=== PATIENT | male | born 1945 | race Caucasian/White ===

== ENCOUNTER → 2016-11-23 | Outpatient (CLI) | payer MEDICARE ==
--- NOTE | 2016-11-23 14:04 | XR ---
Abdomen HISTORY: Low back pain Frontal view of the abdomen on 2 images correlated to prior CT abdomen pelvis 10 March 2016 Multiple calcifications in the pelvis are vascular. Surgical clips are present in the right upper lizzy drant. Lung bases are clear. No bowel obstruction or pneumoperitoneum. Vascular calcifications are pr esent over the kidneys. Degenerative disc changes in the visualized spine. IMPRESSION: Degenerative disc disease. Postop changes.
== END ==
LOC: RADXRMAIN 09:36
PROVIDERS: ATTEND Internal Medicine
DX: M51.36 Other intervertebral disc degeneration, lumbar region (principal); Z98.890 Other specified postprocedural states
CPT/HCPCS: 74000

== ENCOUNTER → 2017-02-10 | Outpatient (CLI) | payer MEDICARE ==
--- NOTE | 2017-02-11 07:29 | XR ---
EXAMINATION TYPE: XR chest 2V DATE OF EXAM: 02/10/2017 COMPARISON: Prior chest x-ray 02/06/2016 HISTORY: Trauma and pain TECHNIQUE: Frontal and lateral views of the chest are obtained. FINDINGS: There is no focal air space opacity, pleural effusion, or pneumothorax seen. Prominent jeffrey ng volumes compatible with underlying COPD. The cardiac silhouette size is stable. The sternum is n ot entirely included on the exam, CT scan could be performed for better evaluation as indicated, bone scan may be of benefit. IMPRESSION: No acute cardiopulmonary process.
== END | disposition home or self-care (01) ==
LOC: RADXRMAIN 16:18
PROVIDERS: ATTEND Internal Medicine
DX: S29.9XXA Unspecified injury of thorax, initial encounter (principal); X58.XXXA Exposure to other specified factors, initial encounter
CPT/HCPCS: 71020

== ENCOUNTER 2017-04-06 08:04 | Day surgery (SDC) | payer MEDICARE ==
[2017-04-01 11:58] VITALS: BMI 29.8
[~2017-04-06 08:04] MED LIST: LACTATED RINGERS 1,000 ML IV SCH
[2017-04-06 08:21] VITALS: RESP 16; TEMP 97.6
[2017-04-06] MEDS ORDERED: LIDOCAINE 1% 20 ML VIAL (10MG/ML) FOR IV START INTRADERMA ONE (08:29)
[2017-04-06] MEDS ORDERED: PROPOFOL 10 MG/ML 20 ML VIAL IV ONE (09:12)
[2017-04-06] MEDS ORDERED: LIDOCAINE 1% INJ 10MG/ML (20 ML MDV) ONE (09:12)
--- NOTE | 2017-04-06 09:18 | P.GSHP ---
History of Present Illness H&P Date: 04/06/17 Chief Complaint: Colon cancer screening Patient with history of colon polyps. He is due for screening colonoscopy. He believes the last colonoscopy was 3-5 years ago. No family history of colon cancer. No bowel related complaints. Past Medical History Past Medical History: Cancer, Myocardial Infarction ([place]) Additional Past Medical History / Comment(s): hx polyps,bladder CA 1999-no radiation or chemo Last Myocardial Infarction Date:: 2010 History of Any Multi-Drug Resistant Organisms: None Reported Past Surgical History: Cholecystectomy, Heart Catheterization With Stent Additional Past Surgical History / Comment(s): heart stent x 2 Past Anesthesia/Blood Transfusion Reactions: No Reported Reaction Additional Past Anesthesia/Blood Transfusion Reaction / Comment(s): no hx blood transfusion Date of Last Stent Placement:: 2010 Smoking Status: Former smoker - Past Family History Mother Family Medical History: No Reported History Father Family Medical History: No Reported History Daughter(s) Family Medical History: Cancer Additional Family Medical History / Comment(s): breast Sister(s) Family Medical History: Cancer Additional Family Medical History / Comment(s): breast Medications and Allergies Home Medications Medication Instructions Recorded Confirmed Type Aspirin 81 mg PO DAILY 04/01/17 04/06/17 History Carvedilol [Coreg] 6.25 mg PO QAM 04/01/17 04/06/17 History Pravastatin Sodium [Pravachol] 40 mg PO DAILY 04/01/17 04/06/17 History Allergies Allergy/AdvReac Type Severity Reaction Status Date / Time Penicillins Allergy "passed Verified 04/06/17 08:13 out and loss of consciousness" Surgical - Exam Vital Signs Temp Pulse Resp BP Pulse Ox 97.6 F 61 16 137/78 98 04/06/17 08:21 04/06/17 08:21 04/06/17 08:21 04/06/17 08:21 04/06/17 08:21 Physical exam: General: Well-developed, well-nourished HEENT: Normocephalic, sclerae nonicteric Abdomen: Nontender, nondistended Extremities: No edema Neuro: Alert and oriented Assessment and Plan (1) Colon cancer screening Narrative/Plan: Will proceed with colonoscopy at this time. Status: Acute
--- NOTE | 2017-04-06 09:30 | P.PCN ---
Date of Procedure: 04/06/17 Preoperative Diagnosis: Postoperative Diagnosis: Procedure(s) Performed: PREOPERATIVE DIAGNOSIS: Colon cancer screening, personal history of polyps POSTOPERATIVE DIAGNOSIS: Normal exam PROCEDURE: Colonoscopy ANESTHESIA: MAC SURGEON: Ashwin Torre M.D. SPECIMENS: None ENDOSCOPIC PROCEDURE: The patient was placed on the endoscopy table in the left decubitus position. The Olympus colonoscope was inserted into the anus and passed under direct visualization to the base of the cecum. The appendiceal orifice was visualized. From that point the scope was slowly withdrawn inspecting all surfaces carefully. There were no neoplastic inflammatory or polypoid lesions throughout the cecum, ascending, transverse, descending, sigmoid and rectum. There was no diverticulosis noted. Digital rectal examination was normal. The patient was taken to the recovery room in stable condition per anesthesia guidelines. RECOMMENDATIONS: Increase fiber. Follow-up colonoscopy in 10 years. Implants: Indications for Procedure: Operative Findings: Description of Procedure:
[2017-04-06 09:49] VITALS: BP 122/79; PULSE 52
== END 2017-04-06 10:15 | disposition home or self-care (01) ==
LOC: ORWHC2ENDO 08:04
PROVIDERS: ATTEND Surgery
DX: Z12.11 Encounter for screening for malignant neoplasm of colon (principal); Z86.010 Personal history of colon polyps; E78.5 Hyperlipidemia, unspecified; I25.10 Atherosclerotic heart disease of native coronary artery without angina pectoris; I10 Essential (primary) hypertension; I25.2 Old myocardial infarction; Z85.51 Personal history of malignant neoplasm of bladder; Z95.5 Presence of coronary angioplasty implant and graft; Z79.82 Long term (current) use of aspirin; Z79.899 Other long term (current) drug therapy; Z88.0 Allergy status to penicillin; Z87.891 Personal history of nicotine dependence
CPT/HCPCS: J2001; J2704; G0105; 45378

== ENCOUNTER 2018-03-22 10:27 | Emergency (ER) | payer MEDICARE, OTHER ==
[2018-03-22 10:44] VITALS: RESP 18
--- NOTE | 2018-03-22 10:51 | ED ---
Lower Extremity Injury HPI - General Chief Complaint: Extremity Injury, Lower Stated Complaint: RT KNEE INJURY Time Seen by Provider: 03/22/18 10:45 Source: patient, RN notes reviewed Mode of arrival: ambulatory Limitations: no limitations - History of Present Illness Initial Comments: This is a 72-year-old male presents emergency Department with chief complaint of right knee injury. Patient states that he was unloading a powered wheelchair and states that it ran into his right knee in the medial aspect causing his knee to buckle. Patient complains of pain in the lateral portion. He's had no prior knee problems no prior knee surgeries. Patient states that the pain is worse with ambulation states that the injury happened a few hours ago. Patient denies any proximal leg pain and denies any distal leg pain. - Related Data Home Medications Medication Instructions Recorded Confirmed Aspirin 81 mg PO DAILY 04/01/17 03/22/18 Carvedilol [Coreg] 6.25 mg PO QAM 04/01/17 03/22/18 Escitalopram [Lexapro] 5 mg PO DAILY 03/22/18 03/22/18 L.acidoph,Paracasei, B.lactis 1 cap PO DAILY 03/22/18 03/22/18 [Probiotic] Pravastatin Sodium [Pravachol] 80 mg PO DAILY 03/22/18 03/22/18 Allergies Allergy/AdvReac Type Severity Reaction Status Date / Time Penicillins Allergy "passed Verified 03/22/18 10:54 out and loss of consciousness" Review of Systems ROS Statement: Those systems with pertinent positive or pertinent negative responses have been documented in the HPI. ROS Other: All systems not noted in ROS Statement are negative. Past Medical History Past Medical History: Cancer, Hyperlipidemia, Myocardial Infarction ([place]) Additional Past Medical History / Comment(s): hx polyps,bladder CA 1999-no radiation or chemo Last Myocardial Infarction Date:: 2010 History of Any Multi-Drug Resistant Organisms: None Reported Past Surgical History: Cholecystectomy, Heart Catheterization With Stent Additional Past Surgical History / Comment(s): heart stent x 2 Past Anesthesia/Blood Transfusion Reactions: No Reported Reaction Additional Past Anesthesia/Blood Transfusion Reaction / Comment(s): no hx blood transfusion Date of Last Stent Placement:: 2010 Past Psychological History: Anxiety Smoking Status: Former smoker Past Alcohol Use History: Occasional Past Drug Use History: None Reported - Past Family History Mother Family Medical History: No Reported History Father Family Medical History: No Reported History Daughter(s) Family Medical History: Cancer Additional Family Medical History / Comment(s): breast Sister(s) Family Medical History: Cancer Additional Family Medical History / Comment(s): breast General Exam Limitations: no limitations General appearance: alert, in no apparent distress Head exam: Present: atraumatic, normocephalic, normal inspection Respiratory exam: Present: normal lung sounds bilaterally. Absent: respiratory distress, wheezes, rales, rhonchi, stridor Cardiovascular Exam: Present: regular rate, normal rhythm, normal heart sounds. Absent: systolic murmur, diastolic murmur, rubs, gallop, clicks Extremities exam: Present: other (Right knee patient has tenderness on lateral aspect of the joint line, there is no swelling no ecchymosis no laxity there is mild discomfort with varus no laxity with varus or valgus.) Skin exam: Present: warm, dry, intact, normal color. Absent: rash Course Vital Signs 03/22/18 10:42 Temperature 98.3 F Pulse Rate 60 Respiratory 18 Rate Blood Pressure 127/73 O2 Sat by Pulse 97 Oximetry Medical Decision Making - Medical Decision Making 72-year-old male presents emergency department for right knee pain. Patient had an injury on the medial aspect causes need to buckle. Patient has lateral knee pain concern for meniscus versus ligamentous injury. Patient placed in knee immobilizer and follow-up with orthopedics. Disposition Clinical Impression: Knee strain Disposition: HOME SELF-CARE Condition: Stable Instructions: Knee Sprain (ED) Additional Instructions: Please return to the Emergency Department if symptoms worsen or any other concerns. Is patient prescribed a controlled substance at d/c from ED?: No Referrals: Geneva Burch MD [Primary Care Provider] - 1-2 days Josue Burgos MD [STAFF PHYSICIAN] - 1-2 days Time of Disposition: 12:14
--- NOTE | 2018-03-22 12:05 | XR ---
EXAMINATION TYPE: XR knee complete RT DATE OF EXAM: 03/22/2018 CLINICAL HISTORY: Right knee pain after injury. TECHNIQUE: Three views of the right knee are obtained. COMPARISON: None. FINDINGS: There is no acute fracture/dislocation evident in right knee. Mild to moderate joint space loss medial tibiofemoral compartment is present. Mild joint space loss patellofemoral compartment is seen. The overlying soft tissue appears unremarkable. IMPRESSION: There is no acute fracture or dislocation in the right knee.
[2018-03-22 12:52] VITALS: BP 111/58; PULSE 70; TEMP 97.5
== END 2018-03-22 12:52 | disposition home or self-care (01) ==
LOC: EC 10:27
DX: S86.811A Strain of other muscle(s) and tendon(s) at lower leg level, right leg, initial encounter (principal); F41.9 Anxiety disorder, unspecified; E78.5 Hyperlipidemia, unspecified; I25.10 Atherosclerotic heart disease of native coronary artery without angina pectoris; Z87.891 Personal history of nicotine dependence; Z79.82 Long term (current) use of aspirin; Z79.02 Long term (current) use of antithrombotics/antiplatelets; Z79.899 Other long term (current) drug therapy; Z88.0 Allergy status to penicillin; Z85.51 Personal history of malignant neoplasm of bladder; W20.8XXA Other cause of strike by thrown, projected or falling object, initial encounter
CPT/HCPCS: 73562; 99283; L1830

== ENCOUNTER → 2018-10-30 | Outpatient (CLI) | payer MEDICARE ==
--- NOTE | 2018-10-30 11:47 | XR ---
EXAMINATION TYPE: XR abdomen complete w decub DATE OF EXAM: 10/30/2018 COMPARISON: Prior abdomen 11/23/2016 HISTORY: Abdominal pain, kidney stones, K 59.00 TECHNIQUE: Supine, upright, and left side down lateral decubitus views of the abdomen are obtained o n 4 images. FINDINGS: Surgical clips present in the right upper quadrant. Retained fecal debris present througho ut the distribution of the colon. Lung bases are clear. There is no evidence for pneumoperitoneum. The bowel gas pattern is unremarkable as there is air throughout nondilated small and large bowel. No sizeable air fluid levels. No mass effects are seen. No unusual calcifications. Multiple calcifications within the pelvis again noted may represent phlebo liths, be vascular IMPRESSION: Correlate for possible fecal stasis.
== END | disposition home or self-care (01) ==
LOC: RADXRMAIN 09:27
PROVIDERS: ATTEND Internal Medicine
DX: K59.00 Constipation, unspecified (principal)
CPT/HCPCS: 74021

== ENCOUNTER → 2019-03-13 | Outpatient (CLI) | payer MEDICARE ==
--- NOTE | 2019-03-13 11:41 | XR ---
EXAMINATION TYPE: XR thoracic spine complete DATE OF EXAM: 03/13/2019 COMPARISON: Chest x-ray 02/10/2017 HISTORY: Pain Alignment is anatomic. There is multilevel hypertrophic change and moderate to severe degenerative d isc disease. There is a moderate to severe anterior wedge deformity in the mid to upper thoracic spin e not clearly seen on any of the previous exam and is age indeterminate. Surgical clips in the right upper quadrant of the abdomen. IMPRESSION: 1. Multilevel moderate to severe degenerative disc disease and hypertrophic changes with an age indet erminate moderate to severe compression deformity or fracture in the mid to upper thoracic spine. Fol low-up MRI or bone scan could BE obtained.
== END | disposition home or self-care (01) ==
LOC: RADXRMAIN 10:59
PROVIDERS: ATTEND Internal Medicine
DX: M51.34 Other intervertebral disc degeneration, thoracic region (principal)
CPT/HCPCS: 72072

== ENCOUNTER → 2019-03-27 | Outpatient (CLI) | payer MEDICARE ==
--- NOTE | 2019-03-28 01:57 | MR ---
EXAMINATION TYPE: MR thoracic spine wo/w con DATE OF EXAM: 03/27/2019 COMPARISON: None HISTORY: Mid back pain CONTRAST: Standard multiplanar, multisequence MRI departmental protocol utilizing 10 mL intravenous Gadavist ga dolinium contrast. FINDINGS: There is some thoracic kyphotic deformity. There is 60% anterior wedging of T5 vertebra. Th ere is variable fatty replacement of the marrow of the vertebral bodies. There is no thoracic paraspi nal mass. Thoracic spinal cord has normal signal pattern without evidence of edema. There is no thora cic spinal stenosis. The contrast images show no pathologic enhancement. I see no focal bone destruct ion. There is a 1.5 cm hemangioma of the posterior aspect of the T9 vertebral body. IMPRESSION: There is T5 compression fracture probably due to osteoporosis. No focal bone destruction. No spinal s tenosis.
== END | disposition home or self-care (01) ==
LOC: RADMRIMAIN 20:27
PROVIDERS: ATTEND Internal Medicine
DX: M48.54XA Collapsed vertebra, not elsewhere classified, thoracic region, initial encounter for fracture (principal)
CPT/HCPCS: 72157; A9585

== ENCOUNTER → 2019-12-20 | Outpatient (CLI) | payer MEDICARE ==
[2019-12-20 18:26] LABS: Chol/HDL Ratio 4.18; LDL Cholesterol,Calculated 84.4 mg/dL (0.0-131.0); VLDL Calculation 23.6 mg/dL (5.00-40.00)
== END | disposition home or self-care (01) ==
LOC: LABWHC1 11:13
PROVIDERS: ATTEND Internal Medicine Cardiovascular Disease
DX: I10 Essential (primary) hypertension (principal); E78.5 Hyperlipidemia, unspecified; I25.10 Atherosclerotic heart disease of native coronary artery without angina pectoris
CPT/HCPCS: 36415; 80061; 84450; 84460

== ENCOUNTER 2020-10-25 15:09 | Emergency (ER) | payer MEDICARE ==
[2020-10-25 15:30] VITALS: RESP 18
[2020-10-25 16:06] LABS: Appearance,Urine Clear (Clear); Bilirubin,Urine Negative (Negative); Blood,Urine Negative (Negative); Color,Urine Yellow; Glucose,Urine (UA) Negative (Negative); Ketones,Urine Negative (Negative); Leukocyte Esterase,Urine Negative (Negative); Nitrite,Urine Negative (Negative); Protein,Urine Negative (Negative); Specific Gravity,Urine 1.026 (1.001-1.035)
[2020-10-25] MEDS ORDERED: SODIUM CHLORIDE 0.9% 500 ML 500 ML IV ONE (16:19)
[2020-10-25 16:43] LABS: Basophils % (A) 0 %; Eosinophils # (A) 0.1 k/uL (0-0.7); Eosinophils % (A) 1 %; HCT 43.8 % (39.0-53.0); HGB 14.6 gm/dL (13.0-17.5); Lymphocytes # (A) 1.3 k/uL (1.0-4.8); Lymphocytes % (A) 20 %; MCH 31.8 pg (25.0-35.0); MCHC 33.4 g/dL (31.0-37.0); MCV 95.2 fL (80.0-100.0); Mean Platelet Volume 7.1; Monocytes # (A) 0.3 k/uL (0-1.0); Monocytes % (A) 5 %; Neutrophils # (A) 4.5 k/uL (1.3-7.7); Neutrophils % (A) 71 %; Platelet Count 194 k/uL (150-450); RBC 4.61 m/uL (4.30-5.90); RDW 13.3 % (11.5-15.5); WBC 6.3 k/uL (3.8-10.6)
--- NOTE | 2020-10-25 16:47 | ED ---
General Adult HPI - General Chief complaint: Back Pain/Injury Stated complaint: Back Pain Time Seen by Provider: 10/25/20 15:34 Source: patient Mode of arrival: ambulatory Limitations: no limitations - History of Present Illness Initial comments: Brandon is a pleasant 74 yo M who presents to the ER today for evaluation of 3wks of right sided flank pain. Patient states that approx. 3 weeks ago been experiencing intermittent stabbing pain in the right flank. Patient reports is been times the pain becomes so severe it drops into his knees. However these episodes resolve. Patient states he has a history of kidney stones and believes he is just been battling one for the past 3 weeks but due to the duration of pain decided to come to the ER for evaluation. Patient reports that he gets nauseated with the pain but has had no vomiting diarrhea or change in bowel habits. Denies any lightheadedness or syncope. Denies any fevers chills or recent illness. - Related Data Home Medications Medication Instructions Recorded Confirmed Aspirin 81 mg PO DAILY 04/01/17 03/22/18 carvediloL [Coreg] 6.25 mg PO QAM 04/01/17 03/22/18 Escitalopram [Lexapro] 5 mg PO DAILY 03/22/18 03/22/18 L.acidoph,Paracasei, B.lactis 1 cap PO DAILY 03/22/18 03/22/18 [Probiotic] Pravastatin Sodium [Pravachol] 80 mg PO DAILY 03/22/18 03/22/18 Allergies Allergy/AdvReac Type Severity Reaction Status Date / Time Penicillins Allergy "passed Verified 10/25/20 15:30 out and loss of consciousness" Review of Systems ROS Statement: Those systems with pertinent positive or pertinent negative responses have been documented in the HPI. ROS Other: All systems not noted in ROS Statement are negative. Past Medical History Past Medical History: Cancer, Hyperlipidemia, Myocardial Infarction ([place]) Additional Past Medical History / Comment(s): hx polyps,bladder CA 1999-no radiation or chemo Last Myocardial Infarction Date:: 2010 History of Any Multi-Drug Resistant Organisms: None Reported Past Surgical History: Cholecystectomy, Heart Catheterization With Stent Additional Past Surgical History / Comment(s): heart stent x 2 Past Anesthesia/Blood Transfusion Reactions: No Reported Reaction Additional Past Anesthesia/Blood Transfusion Reaction / Comment(s): no hx blood transfusion Date of Last Stent Placement:: 2010 Past Psychological History: Anxiety Smoking Status: Former smoker Past Alcohol Use History: Occasional Past Drug Use History: None Reported - Past Family History Mother Family Medical History: No Reported History Father Family Medical History: No Reported History Daughter(s) Family Medical History: Cancer Additional Family Medical History / Comment(s): breast Sister(s) Family Medical History: Cancer Additional Family Medical History / Comment(s): breast General Exam - General Exam Comments Initial Comments: Physical Exam GENERAL: Patient is well-developed and well-nourished. Patient is nontoxic and well-hydrated and is in no distress. HENT: Normocephalic, Atraumatic. EYES: PERRL, EOMI PULMONARY: Unlabored respirations. CARDIOVASCULAR: RRR Warm and well perfused extremities ABDOMEN: Non-distended Tenderness to percussion of the right flank SKIN: No rashes or bruising No evidence of a vesicular rash or signs of shingles : Deferred NEUROLOGIC: Alert and oriented Normal speech Normal gait MUSCULOSKELETAL: Moving all extremities with no apparent injury PSYCHIATRIC: No SI/HI Limitations: no limitations Course Vital Signs 10/25/20 10/25/20 10/25/20 15:27 16:30 17:00 Temperature 99.1 F Pulse Rate 80 Respiratory 18 18 18 Rate Blood Pressure 107/66 O2 Sat by Pulse 97 Oximetry Medical Decision Making - Medical Decision Making Patient was seen and evaluated history is obtained from patient and review of medical record 74-year-old male with a history of kidney stones presenting with 3 weeks of intermittent right-sided flank pain, worse with physical activity such as go lfing, no gross hematuria HEENT on arrival is rated 4 out of [address] resulted with no acute abnormalities, results were discussed with the patient, I discussed the possibility of musculoskeletal source of pain. At that time patient's was at bedside and reminded him that his pain actually began after chiropractic treatment and was worse with golfing. Patient agrees this is likely mechanical in nature. Will follow with primary care physician for referral to physical therapy. - Lab Data Result diagrams: 10/25/20 16:37 10/25/20 16:37 Lab Results 10/25/20 10/25/20 10/25/20 Range/Units 15:48 16:37 16:37 WBC 6.3 (3.8-10.6) k/uL RBC 4.61 (4.30-5.90) m/uL Hgb 14.6 (13.0-17.5) gm/dL Hct 43.8 (39.0-53.0) % MCV 95.2 (80.0-100.0) fL MCH 31.8 (25.0-35.0) pg MCHC 33.4 (31.0-37.0) g/dL RDW 13.3 (11.5-15.5) % Plt Count 194 (150-450) k/uL MPV 7.1 Neutrophils % 71 % Lymphocytes % 20 % Monocytes % 5 % Eosinophils % 1 % Basophils % 0 % Neutrophils # 4.5 (1.3-7.7) k/uL Lymphocytes # 1.3 (1.0-4.8) k/uL Monocytes # 0.3 (0-1.0) k/uL Eosinophils # 0.1 (0-0.7) k/uL Basophils # 0.0 (0-0.2) k/uL Sodium 140 (137-145) mmol/L Potassium 4.5 (3.5-5.1) mmol/L Chloride 106 (98-107) mmol/L Carbon Dioxide 27 (22-30) mmol/L Anion Gap 7 mmol/L BUN 13 (9-20) mg/dL Creatinine 0.84 (0.66-1.25) mg/dL Est GFR (CKD-EPI)AfAm >90 (>60 ml/min/1.73 sqM) Est GFR (CKD-EPI)NonAf 87 (>60 ml/min/1.73 sqM) Glucose 93 (74-99) mg/dL Calcium 9.2 (8.4-10.2) mg/dL Total Bilirubin 0.9 (0.2-1.3) mg/dL AST 22 (17-59) U/L ALT 16 (4-49) U/L Alkaline Phosphatase 78 (38-126) U/L Total Protein 7.8 (6.3-8.2) g/dL Albumin 4.4 (3.5-5.0) g/dL Urine Color Yellow Urine Appearance Clear (Clear) Urine pH 6.0 (5.0-8.0) Ur Specific [place] 1.026 (1.001-1.035) Urine Protein Negative (Negative) Urine Glucose (UA) Negative (Negative) Urine Ketones Negative (Negative) Urine Blood Negative (Negative) Urine Nitrite Negative (Negative) Urine Bilirubin Negative (Negative) Urine Urobilinogen 2.0 (<2.0) mg/dL Ur Leukocyte Esterase Negative (Negative) Disposition Clinical Impression: Mechanical back pain Disposition: HOME SELF-CARE Condition: Stable Instructions (If sedation given, give patient instructions): Acute Low Back Pain (ED) Is patient prescribed a controlled substance at d/c from ED?: No Referrals: [facility] [Primary Care Provider] - 1-2 days
[2020-10-25 16:53] LABS: ALT 16 U/L (4-49); AST 22 U/L (17-59); African American GFR (CKD) >90 (>60 ml/min/1.73 sqM); Albumin 4.4 g/dL (3.5-5.0); Alkaline Phosphatase 78 U/L (38-126); Anion Gap 7 mmol/L; Blood Urea Nitrogen 13 mg/dL (9-20); Calcium 9.2 mg/dL (8.4-10.2); Carbon Dioxide 27 mmol/L (22-30); Chloride 106 mmol/L (98-107); Glucose 93 mg/dL (74-99); Non-African American GFR(CKD) 87 (>60 ml/min/1.73 sqM); Potassium 4.5 mmol/L (3.5-5.1); Sodium 140 mmol/L (137-145); Total Bilirubin 0.9 mg/dL (0.2-1.3); Total Protein 7.8 g/dL (6.3-8.2)
--- NOTE | 2020-10-25 17:56 | CT ---
EXAMINATION TYPE: CT abdomen pelvis w con DATE OF EXAM: 10/25/2020 COMPARISON: 03/10/2016 HISTORY: Right flank pain and hematuria x3 weeks. History of bladder cancer. CT DLP: 1657.6 mGycm Automated exposure control for dose reduction was used. CONTRAST: Performed with IV Contrast, patient injected with 100ml mL of Isovue 300. Images obtained from the diaphragm to the floor the pelvis with IV contrast. Lung bases are clear. There is no pleural effusion. Heart size is normal. There is no pericardial eff usion. Liver spleen stomach pancreas appear normal. There are clips from cholecystectomy. The bile ducts are not dilated. There is no adrenal mass. Kidneys show satisfactory contrast opacification. There is no hydronephrosi s. There is 2 cm cortical cyst posterior right kidney. Delayed images show normal renal excretion. Ur eters are not dilated. There is no retroperitoneal adenopathy. Bladder distends smoothly. There is no inguinal hernia. There is no free fluid in the pelvis. Appendix not definitely seen. No sign of thickened appendix. There is no mesenteric edema. There is no ascites or free air. There is no bowel obstruction. Lumbar vertebra have normal alignment. Disc spaces are fairly normal. There is no compression fractur e. Bony pelvis is intact. The hip joints are intact. IMPRESSION: Right renal cortical cyst unchanged. No evidence of renal mass or obstruction. No evidence of a bladd er mass. No acute abnormality of the abdomen pelvis.
[2020-10-25 18:37] VITALS: BP 138/78; PULSE 64; TEMP 98.4
== END 2020-10-25 18:40 | disposition home or self-care (01) ==
LOC: EC 15:09
DX: M54.9 Dorsalgia, unspecified (principal); E78.5 Hyperlipidemia, unspecified; F41.9 Anxiety disorder, unspecified; I25.2 Old myocardial infarction; Z79.82 Long term (current) use of aspirin; Z87.891 Personal history of nicotine dependence; Z88.0 Allergy status to penicillin; Z85.51 Personal history of malignant neoplasm of bladder
CPT/HCPCS: 36415; 80053; 85025; 81003; 74177; 99284; Q9967

== ENCOUNTER → 2020-11-26 | Outpatient (CLI) | payer MEDICARE ==
[2020-11-26 16:48] LABS: Chol/HDL Ratio 4.5
== END | disposition home or self-care (01) ==
LOC: LABWHC1 10:14
PROVIDERS: ATTEND Internal Medicine Cardiovascular Disease
DX: E78.2 Mixed hyperlipidemia (principal)
CPT/HCPCS: 36415; 80061; 84450; 84460

== ENCOUNTER → 2021-02-17 | Outpatient (CLI) | payer MEDICARE | END | disposition home or self-care (01) | DX: J98.6 Disorders of diaphragm (principal) | CPT/HCPCS: 71046 ==

== ENCOUNTER → 2021-02-23 | Outpatient (CLI) | payer MEDICARE ==
--- NOTE | 2021-02-23 12:54 | US ---
EXAMINATION TYPE: US carotid duplex BILAT DATE OF EXAM: 02/23/2021 COMPARISON: NONE CLINICAL HISTORY: R09.89 Other specified symptoms and signs involvin. Left carotid bruit; TIA 2007 EXAM MEASUREMENTS: RIGHT: Peak Systolic Velocity (PSV) cm/sec ----- Right CCA: 71.0 ----- Right ICA: 77.6 ----- Right ECA: 72.2 ICA/CCA ratio: 1.1 RIGHT: End Diastole cm/sec ----- Right CCA: 11.7 ----- Right ICA: 0.0 ----- Right ECA: 8.7 LEFT: Peak Systolic Velocity (PSV) cm/sec ----- Left CCA: 72.9 ----- Left ICA: 82.1 ----- Left ECA: 102.6 ICA/CCA ratio: 1.1 LEFT: End Diastole cm/sec ----- Left CCA: 11.9 ----- Left ICA: 21.6 ----- Left ECA: 0.0 VERTEBRALS (direction of flow): Right Vertebral: Antegrade Left Vertebral: Antegrade Rhythm: Normal Mild intimal wall thickening is imaged at bilateral carotid bifurcation, but PSV is wnl bilaterally. Incidental findings: thyroid nodules noted in bilateral thyroid glands. Right thyroid larger nodule = 2.9 x 2.3 x 2.1cm. Couple of left thyroid nodules are seen with larger nodule= 3.8 x 1.9 x 2.2cm. IMPRESSION: 1. Thyroid nodules are not well evaluated. Dedicated ultrasound could be obtained. 2. No US evidence for hemodynamically significant stenosis. Criteria for Assigning % of Stenosis / Diameter reduction (Estimation based on the indirect measurements of the internal carotid artery velocities (ICA PSV). 1. Normal (no stenosis)=ICA PSV < 125 cm/s: ratio < 2.0: ICA EDV<40 cm/s. 2. Less than 50% stenosis=ICA PSV < 125 cm/s: ratio < 2.0: ICA EDV<40 cm/s. 3. 50 to 69% stenosis=ICA PSV of 125 to 230 cm/s: ration 2.0 ? 4.0: ICA EDV 40-100 cm/s. 4. Greater than 70% stenosis to near occlusion= ICA PSV > 230 cm/s: ratio > 4.0: ICA EDV > 100 cm/s. 5. Near occlusion= ICA PSV velocities may be low or undetectable: variable ratio and ICA EDV. 6. Total occlusion=unable to detect flow.
== END | disposition home or self-care (01) ==
LOC: RADUSWWP 10:52
PROVIDERS: ATTEND Internal Medicine
DX: I65.23 Occlusion and stenosis of bilateral carotid arteries (principal)
CPT/HCPCS: 93880

== ENCOUNTER 2021-03-30 12:51 | Day surgery (SDC) | payer MEDICARE ==
[2021-03-30 13:26] VITALS: TEMP 97.6
--- NOTE | 2021-03-30 14:33 | US ---
ULTRASOUND GUIDED FNA THYROID BIOPSY: CLINICAL HISTORY: Request for right thyroid nodule FNA FINDINGS: The procedure was explained to the patient. The risks, complications, benefits and alternatives were discussed and any questions were answered. Informed consent was obtained. Patient was placed supin e on the ultrasound table and prepped and draped in the usual sterile fashion. Utilizing a 25 gauge needle, five passes were made into the requested right thyroid nodule. Patient was stable throughout the procedure. Pathology is pending. All elements of maximal barrier technique were utilized. IMPRESSION: 1. Successful ultrasound guided FNA thyroid biopsy.
[2021-03-30 14:39] VITALS: BP 117/69; PULSE 55; RESP 14
== END 2021-03-30 14:40 | disposition home or self-care (01) ==
LOC: RADPROMAIN 12:51
PROVIDERS: ATTEND Internal Medicine
DX: E04.2 Nontoxic multinodular goiter (principal); C67.9 Malignant neoplasm of bladder, unspecified
CPT/HCPCS: 10005; 88173; 88305

== ENCOUNTER → 2021-04-16 | Outpatient (CLI) | payer OTHER ==
--- NOTE | 2021-04-17 07:56 | CTL ---
EXAMINATION TYPE: CT Low Dose Lung DATE OF EXAM ORDERED: 04/16/2021 COMPARISON: None HISTORY: . Low Dose CT Lung Screening CT DLP: 79.[address] CTDI: 2.40 mGy IV CONTRAST USED: None. SCREENING VISIT: First visit COMPARISON: None. TECHNIQUE: Low dose computed tomography scan was performed through the chest at 1 millimeter thick se ctions and reconstructed images in the coronal plane at [address] DIAGNOSTIC QUALITY: Satisfactory FINDINGS: LUNG NODULES: Not presentLeft lung: no nodules identified.Right lung: no nodules identified. LUNGS: COPD: Severity: Mild Fibrosis: Severity:None Lymph nodes: None Other findings: None RIGHT PLEURAL SPACE: Effusion: None Calcification: None Thickening: None Pneumothorax: None LEFT PLEURAL SPACE: Effusion: None Calcification: None Thickening: None Pneumothorax: None HEART: Heart Size: Mildly enlarged Coronary calcification: Mild Pericardial effusion: None OTHER FINDINGS: Upper abdomen: No significant abnormality Bony thorax: Degenerative changes Supraclavicular region: No significant abnormalityOther: No significant abnormalityI IMPRESSION: No distinct pulmonary nodule identified. FOLLOW UP CT CHEST RECOMMENDATION: Follow-up screening in one year. Smoking cessation recommended. CT LUNG RAD: LUNG RAD CATEGORY 1 negative
== END | disposition home or self-care (01) ==
LOC: RADCTMAIN 17:27
DX: Z12.2 Encounter for screening for malignant neoplasm of respiratory organs (principal)
CPT/HCPCS: 71271

== ENCOUNTER → 2022-02-11 | Outpatient (CLI) | payer OTHER ==
[2022-02-11 16:46] LABS: ALT 14 U/L (10-49); AST 19 U/L (14-35); Chol/HDL Ratio 3.94 Ratio; LDL Cholesterol,Calculated 84.4 mg/dL (0.0-131.0)
== END | disposition home or self-care (01) ==
LOC: LABWHC1 09:14
PROVIDERS: ATTEND Internal Medicine Cardiovascular Disease
DX: E78.2 Mixed hyperlipidemia (principal)
CPT/HCPCS: 36415; 80061; 84450; 84460

== ENCOUNTER 2022-12-28 09:35 | Day surgery (SDC) | payer OTHER ==
[2022-12-24 17:49] VITALS: BMI 27.1
[2022-12-28] MEDS ORDERED: LACTATED RINGERS 1,000 ML IV SCH (10:39)
[2022-12-28] MEDS ORDERED: LIDOCAINE 1% (10MG/ML) FOR IV START INTRADERMA PRN (10:39)
[2022-12-28 10:53] VITALS: RESP 16; TEMP 97.2
[2022-12-28] MEDS ORDERED: PROPOFOL 10 MG/ML 20 ML VIAL IV ONE (11:29)
--- NOTE | 2022-12-28 11:44 | P.PCN ---
Date of Procedure: 12/28/22 Procedure(s) Performed: BRIEF HISTORY: Patient is a 77-year-old pleasant male scheduled for an elective colonoscopy as a part of screening for colon cancer. His nephew was recently was diagnosed with colon cancer at age 50 PROCEDURE PERFORMED: Colonoscopy. PREOPERATIVE DIAGNOSIS: Screening for colon cancer. IV sedation per Anesthesia. PROCEDURE: After informed consent was obtained, the patient, was brought into the endoscopy unit. IV sedation was administered by Anesthesia under continuous monitoring. Digital rectal examination was normal. Initially the Olympus CF-160 flexible video colonoscope was then inserted in the rectum, gradually advanced into the cecum without any difficulty. Careful examination was performed as the scope was gradually being withdrawn. Ileocecal valve and the appendiceal orifice were visualized and appeared normal. Prep was excellent. Mucosa of the cecum, ascending colon, transverse colon, descending colon, sigmoid colon, and rectum appeared normal. Retroflexion was performed in the rectum and no lesions were seen. The patient tolerated the procedure well. IMPRESSION: Normal-appearing colon from rectum to cecum with no evidence of colorectal neoplasia . RECOMMENDATIONS: Findings of this examination were discussed with the patient as well as his family. He was advised to have a repeat screening colonoscopy in 5 years from now because of the family history.
[2022-12-28] MEDS ORDERED: LACTATED RINGERS 1,000 ML IV ONE (11:45)
[2022-12-28 12:05] VITALS: BP 142/88; PULSE 59
== END 2022-12-28 12:25 | disposition home or self-care (01) ==
LOC: ORWHC2ENDO 09:35
PROVIDERS: ATTEND Internal Medicine Gastroenterology
DX: Z12.11 Encounter for screening for malignant neoplasm of colon (principal); I25.2 Old myocardial infarction; Z95.5 Presence of coronary angioplasty implant and graft; I10 Essential (primary) hypertension; E78.5 Hyperlipidemia, unspecified; E03.9 Hypothyroidism, unspecified; Z79.890 Hormone replacement therapy; F41.9 Anxiety disorder, unspecified; Z79.899 Other long term (current) drug therapy; Z88.0 Allergy status to penicillin
CPT/HCPCS: 45378; J2704

== ENCOUNTER → 2023-07-15 | Outpatient (CLI) | payer OTHER ==
--- NOTE | 2023-07-17 15:28 | US ---
EXAMINATION TYPE: US thyroid st tissue head/neck DATE OF EXAM: 07/15/2023 COMPARISON: US FNA 2020, Outside ultrasound 03/13/2021 CLINICAL INDICATION: Male, 77 years old with history of R94.6 THYROID; Hx FNA. GLAND SIZE: Right Lobe: 7.0 x 3.7 x 2.4 cm Overall Parenchyma: heterogenous Left Lobe: 7.7 x 2.5 x 2.2 cm Overall Parenchyma: heterogenous Isthmus Thickness: 0.44 cm NODULES RIGHT: # of nodules measured on right: 2 1. 3.4 X 2.5 x 1.9 cm, upper lateral, mixed cystic and solid, isoechoic nodule, which is wider than tall, with smooth margins, without echogenic foci. Prior size: 3.6 x 2.6 x 2.0 cm 2. 1.7 X 1.3 x 1.0 cm, mid medial, solid or almost completely solid, isoechoic nodule, which is wid er than tall, with smooth margins, without echogenic foci. TR 3 Prior size: 1.8 x 1.7 x 1.0 cm LEFT: # of nodules measured on left: 1 1. 0.8 X 0.5 x 0.7 cm, upper mid, mixed cystic and solid, hypoechoic nodule, which is taller than w madhu, with smooth margins, with echogenic foci. Prior size: Does not correlate with certainty. ISTHMUS: # of nodules measured in the isthmus: 0 Bilateral neck scanned, no evidence of lymphadenopathy. IMPRESSION: Mildly suspicious nodule right lobe thyroid. Follow-up ultrasound in one year. 2017 ACR TI-RADS LEVEL: *Highest TI-RADS level nodule reported
--- NOTE | 2023-07-19 08:04 | CTL ---
EXAMINATION TYPE: CT Low Dose Lung DATE OF EXAM ORDERED: 07/15/2023 COMPARISON: 04/08/2022 HISTORY: . Low Dose CT Lung Screening CT DLP: 78.[address] CTDI: 2.6 mGy IV CONTRAST USED: None. SCREENING VISIT: First visit COMPARISON: There TECHNIQUE: Low dose computed tomography scan was performed through the chest at 1 millimeter thick se ctions and reconstructed images in the coronal plane at [address] DIAGNOSTIC QUALITY: Satisfactory FINDINGS: LUNG NODULES: Stable 5 mm left apical pulmonary nodule image 37. Stable 3 mm pulmonary nodule right u pper lobe anteriorly. LUNGS: COPD: Severity: None Fibrosis: Severity:None Lymph nodes: None Other findings: Ascending aorta up to 4.0 cm in diameter redemonstrated. Prominent central pulmonary arteries redemonstrated. RIGHT PLEURAL SPACE: Effusion: None Calcification: None Thickening: None Pneumothorax: None LEFT PLEURAL SPACE: Effusion: None Calcification: None Thickening: None Pneumothorax: None HEART: Heart Size: Mildly enlarged Coronary calcification: Mild Pericardial effusion: None OTHER FINDINGS: Upper abdomen: A cystectomy clips are redemonstrated Bony thorax: Exaggerated kyphosis. Osseous struc tures demineralized. Slight scoliotic curvature. Redemonstration of moderate chronic compression type fracture at roughly T5 level Bony thorax: Degenerative changes Supraclavicular region: No significant abnormalityOther: No significant abnormalityI IMPRESSION: Scattered small calcified and noncalcified pulmonary nodules. Some clearly seen on prior. All measure under 5mm in size. FOLLOW UP CT CHEST RECOMMENDATION: Follow-up screening in one year CT LUNG RAD: LUNG RAD CATEGORY Lung-Rad 2 Benign Appearance or Behavior: Continue annual screening with LDCT in 12 months.
== END | disposition home or self-care (01) ==
LOC: RADCTMAIN 15:38
DX: Z12.2 Encounter for screening for malignant neoplasm of respiratory organs (principal); E04.2 Nontoxic multinodular goiter; R94.6 Abnormal results of thyroid function studies; Z87.891 Personal history of nicotine dependence
CPT/HCPCS: 71271; 76536

== ENCOUNTER → 2023-10-05 | Outpatient (CLI) | payer OTHER ==
--- NOTE | 2023-10-07 12:37 | NM ---
EXAMINATION TYPE: NM thyroid image w uptake DATE OF EXAM: 10/06/2023 COMPARISON: Ultrasound 07/15/2023 CLINICAL INDICATION: Male, 77 years old with history of E05.90 THYROTOXICOSIS; TECHNIQUE: Thyroid iodine uptake is calculated and images performed after the oral administration of 306 uCi 1-123 Capsule. FINDINGS: There is a focal cold defect in the right upper pole consistent with the reported ultrasoun d finding of nodule. There is reduced uptake involving the left lobe relative to the right with incre ased uptake particularly noted involving the lower pole of the right lobe may represent a hyperfuncti oning nodule.. The 4 hour iodine uptake is calculated at 13.7% (normal range 8-14%). The 24-hour iod ine uptake is calculated at 32.1% (normal range 15-35%). IMPRESSION: 1. There is a focal cold defect upper pole right lobe of the thyroid corresponding to the ultrasound nodule. 2. There is heterogeneous mixed increased and reduced uptake of lower pole which may represent hyperf unctioning\autonomously nodule with mild suppression of the left thyroid.
== END | disposition home or self-care (01) ==
LOC: RADNMMAIN 09:28
PROVIDERS: ATTEND Internal Medicine Endocrinology, Diabetes & Metabolism
DX: E07.89 Other specified disorders of thyroid (principal); E05.90 Thyrotoxicosis, unspecified without thyrotoxic crisis or storm
CPT/HCPCS: 78014; A9516

== ENCOUNTER → 2023-11-16 | Outpatient (CLI) | payer OTHER ==
[2023-11-16 15:51] LABS: T4, Free (Free Thyroxine) 1.08 ng/dL (0.80-1.80)
== END | disposition home or self-care (01) ==
LOC: LABWHC1 09:26
PROVIDERS: ATTEND Internal Medicine Endocrinology, Diabetes & Metabolism
DX: E05.90 Thyrotoxicosis, unspecified without thyrotoxic crisis or storm (principal)
CPT/HCPCS: 36415; 84439; 84443; 84445; 84480

== ENCOUNTER → 2024-07-19 | Outpatient (CLI) | payer MEDICARE ==
[2024-07-19 16:20] LABS: T4, Free (Free Thyroxine) 1.16 ng/dL (0.80-1.80)
== END | disposition home or self-care (01) ==
LOC: LABWHC1 12:44
PROVIDERS: ATTEND Internal Medicine Endocrinology, Diabetes & Metabolism
DX: E05.90 Thyrotoxicosis, unspecified without thyrotoxic crisis or storm (principal)
CPT/HCPCS: 36415; 84439; 84443; 84481

== ENCOUNTER 2024-08-29 15:57 | Emergency (ER) | payer MEDICARE, OTHER ==
[2024-08-29 16:03] VITALS: RESP 16
[2024-08-29] MEDS: IBUPROFEN 800 MG TAB PO STA (16:50)
--- NOTE | 2024-08-29 16:52 | ED ---
General Adult HPI - General Chief complaint: Fall Stated complaint: L knee and ankle injury Time Seen by Provider: 08/29/24 16:40 Source: patient, RN notes reviewed, old records reviewed Mode of arrival: ambulatory Limitations: no limitations - History of Present Illness Initial comments: Patient is a 78-year-old male who presents emergency department after a fall. Occurred this morning. States he was wearing boat shoes and walking down the driveway when he slipped on ice and fell onto his left side. States he rolled his left ankle and inverted it and landed injuring his left knee and his left ankle. Patient does take Plavix but denies any pain to the hips, back. Denies any head injury or hitting his head on the ground. Denies any loss of consciousness. Denies any head trauma at all. Presents for further evaluation at this time after the fall. States the pain is primarily on the outside aspect of his left ankle but is also having some pain in the anterior aspect of his knee. Can still bend the knee. Difficulty with moving the ankle. No sensory deficits of the left foot. - Related Data Home Medications Medication Instructions Recorded Confirmed Aspirin 81 mg PO DAILY 04/01/17 12/24/22 carvediloL [Coreg] 6.25 mg PO QAM 04/01/17 12/28/22 Escitalopram [Lexapro] 5 mg PO DAILY 03/22/18 12/24/22 Pravastatin Sodium [Pravachol] 80 mg PO DAILY 03/22/18 12/24/22 Allergies Allergy/AdvReac Type Severity Reaction Status Date / Time Penicillins Allergy "passed Verified 08/29/24 16:03 out and loss of consciousness" Review of Systems ROS Statement: Those systems with pertinent positive or pertinent negative responses have been documented in the HPI. Review of Systems: CONST: Denies fever EYES: Denies blurry vision ENT: Denies nasal congestion C/V: Denies Chest pain RESP: Denies shortness of breath GI: Denies abdominal pain : Denies dysuria SKIN: Denies rash. MSK: Endorses left knee pain, left ankle pain. NEURO: Denies headache ROS Other: All systems not noted in ROS Statement are negative. Past Medical History Past Medical History: Cancer, Hyperlipidemia, Myocardial Infarction (ND), Thyroid Disorder Additional Past Medical History / Comment(s): hx polyps,bladder CA 1999-no radiation or chemo Last Myocardial Infarction Date:: 2010 History of Any Multi-Drug Resistant Organisms: None Reported Past Surgical History: Bladder Surgery, Cholecystectomy, Heart Catheterization With Stent Additional Past Surgical History / Comment(s): heart stent x 2 Past Anesthesia/Blood Transfusion Reactions: No Reported Reaction Additional Past Anesthesia/Blood Transfusion Reaction / Comment(s): no hx blood transfusion Date of Last Stent Placement:: 2010 Past Psychological History: Anxiety Smoking Status: Former smoker Past Alcohol Use History: Occasional Past Drug Use History: None Reported - Past Family History Mother Family Medical History: No Reported History Father Family Medical History: No Reported History Daughter(s) Family Medical History: Cancer Additional Family Medical History / Comment(s): breast Sister(s) Family Medical History: Cancer Additional Family Medical History / Comment(s): breast General Exam - General Exam Comments Initial Comments: General: Appears in no acute distress. HEAD: Normal with no signs of head trauma. Negative negative Bauer sign. Negative raccoon eyes. EYES: EOMI. ENT: Hearing grossly intact. RESPIRATORY: No respiratory distress. C/V: Regular rate and rhythm. Peripheral pulses 2+ in the left lower extremity. ABD: Abdomen is nondistended. EXT: Edema to the lateral aspect of the left ankle with reduced range of motion secondary to pain. Neurovascular intact throughout the left lower extremity. Reduced range of motion of the left knee secondary to pain. Can hold knee in full extension against gravity. Pain with flexion of the left knee. No obvious deformity of the left knee. Pelvis is stable. No other significant findings on exam. SKIN: No rashes or lesions observed on exposed skin. NEURO: Alert and oriented x 4. GCS of 15. Limitations: no limitations Course Vital Signs 08/29/24 08/29/24 15:59 18:55 Temperature 97.4 F L 98 F Pulse Rate 71 72 Respiratory 16 16 Rate Blood Pressure 139/77 136/74 O2 Sat by Pulse 99 99 Oximetry Procedures - Orthopedic Splinting/Casting Injury #1 Side: left Lower Extremity Injury Location: short leg Lower Extremity Immobilizer: stirrup splint Other Orthopedic Equipment: crutches Additional Comments: Neurovascular intact following splinting in the left lower extremity. Medical Decision Making - Medical Decision Making Was pt. sent in by a medical professional or institution (, PA, CROSSING SUPERVISOR, urgent care, hospital, or detention...) When possible be specific @ -No Did you speak to anyone other than the patient for history (EMS, parent, family, police, friend...)? What history was obtained from this source @ -No Did you review nursing and triage notes (agree or disagree)? Why? @ -I reviewed and agree with nursing and triage notes Were old charts reviewed (outside hosp., previous admission, EMS record, old EKG, old radiological studies, urgent care reports/EKG's, detention records)? Report findings @ -No old charts were reviewed Differential Diagnosis (chest pain, altered mental status, abdominal pain women, abdominal pain men, vaginal bleeding, weakness, fever, dyspnea, syncope, headache, dizziness, GI bleed, back pain, seizure, CVA, palpatations, mental health, musculoskeletal)? @ -Differential Musculoskeletal Muscular strain, contusion, ligament sprain, fracture, arthritis, septic arthritis, bursitis, cellulitis, muscle spasm, nerve compression, DVT, arterial occlusion, herpes zoster, electrolyte abnormality, tumor.... This is not meant to be in all inclusive list EKG interpreted by me (3pts min.). @ -None done X-rays interpreted by me (1pt min.). @ -Patient's left lower extremity x-rays remarkable for a proximal fibular fracture and fibular head fracture as well as an acute spiral fracture of the distal fibula with soft tissue swelling. CT interpreted by me (1pt min.). @ -None done U/S interpreted by me (1pt. min.). @ -None done What testing was considered but not performed or refused? (CT, X-rays, U/S, labs)? Why? @ -None What meds were considered but not given or refused? Why? @ -None Did you discuss the management of the patient with other professionals (professionals i.e. DrWally, PA, CROSSING SUPERVISOR, lab, RT, psych nurse, pediatric social worker, salesperson florist supplies, teacher, investment officer, porter sample case)? Give summary @ -Discussed x-ray results with on-call orthopedic physician, Dr. Littlejohn who works with patient's known orthopedic physician Dr. Busch. States that patient's proximal fibula injury does not need to be splinted or reinforced but does recommend the short leg splint, crutches and nonweightbearing, as well as follow-up with him in the office in the next [address] Busch is currently unavailable. Was smoking cessation discussed for >3mins.? @ -No Was critical care preformed (if so, how long)? @ -no Were there social determinants of health that impacted care today? How? (Homelessness, low income, unemployed, alcoholism, drug addiction, transportation, low edu. Level, literacy, decrease access to med. care, [facility], rehab)? @ -No Was there de-escalation of care discussed even if they declined (Discuss DNR or withdrawal of care, Hospice)? DNR status @ -No What co-morbidities impacted this encounter? (DM, HTN, Smoking, COPD, CAD, Cancer, CVA, ARF, Chemo, Hep., AIDS, mental health diagnosis, sleep apnea, morbid obesity)? @ -None Was patient admitted / discharged? Hospital course, mention meds given and route, prescriptions, significant lab abnormalities, going to OR and other pertinent info. @ -Patient presents with complaints of mechanical fall resulting in left knee and left ankle injury. We obtain x-rays of the left lower extremity. Patient given Motrin. No evidence of head injury and patient denies hitting head. Does not meet criteria for trauma activation. Injury occurred earlier this morning, however patient's pain has not improved which is why he presents for further evaluation at this time. No indication for further imaging. Patient given Motrin as well as an ice pack. Patient was in agreement this plan. X-ray imaging remarkable for proximal fibular fracture with fibular head fracture as well as an acute spiral fracture of the distal fibula. Discussed x-ray results with on-call orthopedic physician, Dr. Littlejohn who works with patient's known orthopedic physician Dr. Busch. States that patient's proximal fibula injury does not need to be splinted or reinforced but does recommend the short leg splint, crutches and nonweightbearing, as well as follow-up with him in the office in the next [address] Busch is currently unavailable. I discussed the plan with the patient. He was in agreement this plan. He declines any analgesia medications for home and states he will use Tylenol or Motrin as needed. Rest recommended rest, ice, as well as follow-up with Dr. Littlejohn. He will be given crutches. Patient had short leg stirrup splint placed and patient tolerated the procedure well. Neurovascular intact following the procedure. Recommended follow-up with orthopedics in the next 1 to 3 days. He was in agreement this plan. I instructed the patient to follow up with their PCP in the next 1-3 days. I provided contact information for follow up with Dr. littlejohn. I explained that the patient should return to the emergency department if they experience any worsening symptoms. Strict return precautions were discussed with the patient. The patient expressed understanding of these instructions. I answered all questions that the patient had. The patient was discharged home in good condition with their prescriptions and follow up information. Undiagnosed new problem with uncertain prognosis? @ -No Drug Therapy requiring intensive monitoring for toxicity (Heparin, Nitro, Insulin, Cardizem)? @ -No Were any procedures done? @ -left short leg stirrup splint. Diagnosis/symptom? @ -Proximal fibula fracture. Distal fibula spiral fracture, fall Acute, or Chronic, or Acute on Chronic? @ -Acute Uncomplicated (without systemic symptoms) or Complicated (systemic symptoms)? @ -Uncomplicated Side effects of treatment? @ -None Exacerbation, Progression, or Severe Exacerbation] @ -No Poses a threat to life or bodily function? @ -Unlikely at this time Disposition Clinical Impression: Fracture of head of fibula, Fracture of distal fibula, Fall Disposition: HOME SELF-CARE Condition: Fair Instructions (If sedation given, give patient instructions): Leg Fracture (ED), Crutch Instructions (ED), Fall Prevention for Older Adults (ED) Additional Instructions: You have a fibular head fracture on the proximal end of the fibula as well as a distal spiral fracture of the fibula. You are in need to be nonweightbearing until you follow-up with orthopedic surgery. Use crutches as needed. Follow-up with Dr. Bean who is expecting you to follow-up with him in the office. Return to the emergency department for any worsening symptoms. Follow-up within the next 1 to 3 days. Is patient prescribed a controlled substance at d/c from ED?: No Referrals: Geneva Burch MD [Primary Care Provider] - 1-2 days Marciano Littlejohn MD [STAFF PHYSICIAN] - 1-2 days Time of Disposition: 18:15
--- NOTE | 2024-08-29 17:33 | XR ---
EXAMINATION TYPE: XR ankle complete LT, XR tibia fibula LT, XR knee complete LT DATE OF EXAM: 08/29/2024 5:21 PM COMPARISON: None CLINICAL INDICATION: Male, 78 years old with history of pain; PHH, pain TECHNIQUE: XR ankle complete LT, XR tibia fibula LT, XR knee complete LT; Frontal and lateral views of the tibia and fibula. Frontal lateral and oblique views of the ankle. Frontal lateral and oblique views of the FINDINGS/IMPRESSION: 1. Acute spiral fracture of the distal fibula with associated soft tissue swelling. 2. Proximal fibular fracture and fibular head fracture. 3. Mild degeneration changes of the knee without evidence of fracture. 4. Remote deltoid ligamentous injury. [facility] Michelle, , 08/29/2024 5:31 PM
[2024-08-29 18:56] VITALS: BP 136/74; PULSE 72; TEMP 98
== END 2024-08-29 18:56 | disposition home or self-care (01) ==
LOC: EC 15:57
DX: S82.832A Other fracture of upper and lower end of left fibula, initial encounter for closed fracture (principal); S82.422A Displaced transverse fracture of shaft of left fibula, initial encounter for closed fracture; Z87.891 Personal history of nicotine dependence; Z88.0 Allergy status to penicillin; W00.0XXA Fall on same level due to ice and snow, initial encounter; Y93.01 Activity, walking, marching and hiking
CPT/HCPCS: 29515; 99283